=== PATIENT | female | born 1945 | race African-American/Black ===

== ENCOUNTER 2017-10-28 16:20 | Inpatient (IN) | payer MEDICARE, BC ==
[~2017-10-28] VITALS: Ht 170.2 cm; Wt 93.4 kg
[2017-10-28 17:49] LABS: BASOPHILS % 0.8 % (0.0-2.0); EOSINOPHILS % 4.7 % (0.0-5.0); HEMATOCRIT. 35.2 % (36.0-48.0); HEMOGLOBIN. 11.7 g/dL (12.0-16.0); LYMPHOCYTES % 21.3 % (20.0-50.0); MEAN CORPUSCULAR HEMOGLOBIN 27.4 pg (28.0-32.0); MEAN CORPUSCULAR VOLUME 82.2 fL (81.0-99.0); MEAN PLATELET VOLUME 7.9 fl (7.4-10.4); MONOCYTES % 7.8 % (2.0-8.0); NEUTROPHILS % 65.4 % (40.0-76.0); PLATELET 176 x1000/uL (130-400); RED BLOOD CELL COUNT 4.28 mill/uL (4.2-5.4); RED CELL DISTRIBUTION WIDTH 14.7 % (11.6-14.6)
[2017-10-28 17:51] LABS: CHLORIDE 106 mEq/L (98-107)
[2017-10-28 17:52] LABS: INR 1.1
[2017-10-28 18:01] LABS: CREATINE KINASE 757 IU/L (26-192)
[2017-10-28 22:00] VITALS: BP 140/70
[2017-10-28] MEDS ORDERED: DIGO125T82 PO (22:09)
[2017-10-28] MEDS ORDERED: METF-415 PO (22:09)
[2017-10-28] MEDS ORDERED: ASPI-986 PO (22:12)
[2017-10-28] MEDS ORDERED: ATEN-42 PO (22:14)
[2017-10-28] MEDS ORDERED: GUAIFENESIN 200MG/10ML SUGAR FREE UDC PO PRN (23:00)
[2017-10-28] MEDS ORDERED: DOCUSATE SODIUM 100MG CAPSULE PO PRN (23:00)
[2017-10-28] MEDS ORDERED: ACETAMINOPHEN 325MG TABLET PO PRN (23:00)
[2017-10-28] MEDS ORDERED: CLONIDINE 0.1MG TABLET PO PRN (23:00)
[2017-10-28] MEDS ORDERED: ONDANSETRON HCL 4MG/2ML INJ IV PRN (23:00)
[2017-10-29] VITALS: BP 140/70
[2017-10-29] MEDS: SODIUM CHLORIDE 0.9% 1,000 ML IV SCH ×2 (01:27→21:54)
[2017-10-29 04:00] VITALS: BP 124/69
[2017-10-29 06:13] LABS: BASOPHILS % 0.9 % (0.0-2.0); HEMATOCRIT. 32.3 % (36.0-48.0); HEMOGLOBIN. 10.8 g/dL (12.0-16.0); LYMPHOCYTES % 23.7 % (20.0-50.0); MEAN CORPUSCULAR HEMOGLOBIN 27.6 pg (28.0-32.0); MEAN CORPUSCULAR VOLUME 82.5 fL (81.0-99.0); MEAN PLATELET VOLUME 7.9 fl (7.4-10.4); MONOCYTES % 7.3 % (2.0-8.0); NEUTROPHILS % 61.1 % (40.0-76.0); PLATELET 166 x1000/uL (130-400); RED BLOOD CELL COUNT 3.92 mill/uL (4.2-5.4); RED CELL DISTRIBUTION WIDTH 14.7 % (11.6-14.6)
[2017-10-29 06:47] LABS: CHLORIDE 108 mEq/L (98-107); CREATINE KINASE 468 IU/L (26-192)
[2017-10-29 08:00] VITALS: BP 122/74
[2017-10-29] MEDS: MULTIVITAMINS,THER W-MINERALS TABLET PO SCH (08:42)
[2017-10-29] MEDS: ASPIRIN 81MG EC TABLET PO SCH (08:42)
[2017-10-29] MEDS: AMLODIPINE 10MG TABLET PO SCH (08:45)
[2017-10-29 11:55] LABS: CLARITY URINE CLOUDY (CLEAR); COLOR URINE DARK YELLOW (YELLOW); KETONES URINE 1+ (NEGATIVE); LEUKOCYTE ESTERASE URINE 2+ (NEGATIVE); NITRITE URINE POSITIVE (NEGATIVE); OCCULT BLOOD URINE 3+ (NEGATIVE); PH URINE 5.5 (4.5-8.0); PROTEIN URINE 1+ (NEGATIVE); SPECIFIC GRAVITY URINE 1.026 (1.005-1.030)
[2017-10-29 12:00] VITALS: BP 120/80
[2017-10-29] MEDS: INSULIN LISPRO 100 UNITS/ML SUBCUT SCH ×3 (12:54→21:00)
[2017-10-29] MEDS: BLOOD SUGAR DIAGNOSTIC STRIP TEST SCH ×3 (12:54→21:40)
[2017-10-29] MEDS ORDERED: DEXTROSE 50% WATER 50ML SYRINGE IV PRN (13:00)
[2017-10-29 16:00] VITALS: BP 111/56
[2017-10-29 16:17] LABS: CREATINE KINASE 375 IU/L (26-192)
[2017-10-29 20:00] VITALS: BP 111/59
[2017-10-30] VITALS: BP 125/66
[2017-10-30] MEDS: SODIUM CHLORIDE 0.9% 1,000 ML IV SCH ×2 (01:30→12:47)
[2017-10-30 04:00] VITALS: BP 126/70
[2017-10-30] MEDS: BLOOD SUGAR DIAGNOSTIC STRIP TEST SCH ×4 (07:14→21:40)
[2017-10-30] MEDS: INSULIN LISPRO 100 UNITS/ML SUBCUT SCH ×4 (07:14→21:00)
[2017-10-30 08:00] VITALS: BP 166/76
[2017-10-30] MEDS: MULTIVITAMINS,THER W-MINERALS TABLET PO SCH (08:49)
[2017-10-30] MEDS: ASPIRIN 81MG EC TABLET PO SCH (08:49)
[2017-10-30] MEDS: AMLODIPINE 10MG TABLET PO SCH (08:50)
[2017-10-30 12:00] VITALS: BP 112/62
[2017-10-30] MEDS: LEVOFLOXACIN 500MG PREMIX 100 ML IV SCH (15:48)
[2017-10-30 16:00] VITALS: BP 128/69
[2017-10-30 20:00] VITALS: BP 128/69
[2017-10-31] VITALS: BP 122/68
[2017-10-31 04:00] VITALS: BP 140/76
[2017-10-31] MEDS: BLOOD SUGAR DIAGNOSTIC STRIP TEST SCH ×4 (06:49→20:45)
[2017-10-31] MEDS: SODIUM CHLORIDE 0.9% 1,000 ML IV SCH ×2 (06:50→17:30)
[2017-10-31] MEDS: INSULIN LISPRO 100 UNITS/ML SUBCUT SCH ×4 (07:00→20:47)
[2017-10-31 08:00] VITALS: BP 154/82
[2017-10-31] MEDS: AMLODIPINE 10MG TABLET PO SCH (09:21)
[2017-10-31] MEDS: MULTIVITAMINS,THER W-MINERALS TABLET PO SCH (09:21)
[2017-10-31] MEDS: ASPIRIN 81MG EC TABLET PO SCH (09:21)
[2017-10-31] MEDS: LEVOFLOXACIN 500MG PREMIX 100 ML IV SCH (14:19)
[2017-10-31] MEDS ORDERED: NITR-87 PO (15:43)
[2017-10-31 15:44] VITALS: BP 142/82
[2017-10-31 16:00] VITALS: BP_SYST 136; BP_SYST 163; BP_DIAS 84; BP_DIAS 89
[2017-10-31 20:51] VITALS: BP 140/78
[2017-11-01] VITALS: BP 156/78
[2017-11-01 04:00] VITALS: BP 132/67
[2017-11-01] MEDS: BLOOD SUGAR DIAGNOSTIC STRIP TEST SCH ×4 (06:21→21:18)
[2017-11-01] MEDS: SODIUM CHLORIDE 0.9% 1,000 ML IV SCH ×2 (06:50→17:31)
[2017-11-01] MEDS: INSULIN LISPRO 100 UNITS/ML SUBCUT SCH ×4 (07:50→21:00)
[2017-11-01] MEDS: ASPIRIN 81MG EC TABLET PO SCH (08:38)
[2017-11-01] MEDS: MULTIVITAMINS,THER W-MINERALS TABLET PO SCH (08:38)
[2017-11-01] MEDS: AMLODIPINE 10MG TABLET PO SCH (08:39)
[2017-11-01 09:25] VITALS: BP 135/78
[2017-11-01 12:00] VITALS: BP 108/67
[2017-11-01 16:00] VITALS: BP 121/69
[2017-11-01 20:00] VITALS: BP 138/73
[2017-11-02] VITALS: BP 151/83
[2017-11-02 04:00] VITALS: BP 135/75
[2017-11-02] MEDS: BLOOD SUGAR DIAGNOSTIC STRIP TEST SCH ×4 (06:48→21:32)
[2017-11-02] MEDS: INSULIN LISPRO 100 UNITS/ML SUBCUT SCH ×4 (07:50→21:00)
[2017-11-02 08:00] VITALS: BP 142/78
[2017-11-02] MEDS: ASPIRIN 81MG EC TABLET PO SCH (09:28)
[2017-11-02] MEDS: MULTIVITAMINS,THER W-MINERALS TABLET PO SCH (09:28)
[2017-11-02] MEDS: AMLODIPINE 10MG TABLET PO SCH (09:28)
[2017-11-02 12:00] VITALS: BP 127/59
[2017-11-02 16:00] VITALS: BP 131/62
[2017-11-02] MEDS: LEVOFLOXACIN 500MG TABLET PO SCH (16:19)
[2017-11-02 20:00] VITALS: BP 142/70
[2017-11-03] VITALS: BP 148/72
[2017-11-03] MEDS: BLOOD SUGAR DIAGNOSTIC STRIP TEST SCH ×3 (06:42→17:18)
[2017-11-03] MEDS: INSULIN LISPRO 100 UNITS/ML SUBCUT SCH ×3 (06:44→17:18)
[2017-11-03 08:00] VITALS: BP 144/78
[2017-11-03] MEDS: ASPIRIN 81MG EC TABLET PO SCH (08:12)
[2017-11-03] MEDS: AMLODIPINE 10MG TABLET PO SCH (08:12)
[2017-11-03] MEDS: MULTIVITAMINS,THER W-MINERALS TABLET PO SCH (08:20)
[2017-11-03] MEDS: LEVOFLOXACIN 500MG TABLET PO SCH (10:00)
[2017-11-03 12:00] VITALS: BP 151/73
[2017-11-03 16:00] VITALS: BP 144/73
[2017-11-03 16:09] VITALS: BP 144/73
== END 2017-11-03 18:30 | DRG 557 ==
LOC: ER 16:20 → 6EST 20:02 → ENRESERV 20:23
PROVIDERS: ADMIT Hospitalist; ATTEND Hospitalist
DX: M62.82 Rhabdomyolysis (principal); R53.2 Functional quadriplegia; D64.9 Anemia, unspecified; E11.9 Type 2 diabetes mellitus without complications; N39.0 Urinary tract infection, site not specified; I10 Essential (primary) hypertension; B96.89 Other specified bacterial agents as the cause of diseases classified elsewhere; I25.10 Atherosclerotic heart disease of native coronary artery without angina pectoris; W18.39XA Other fall on same level, initial encounter; Y93.89 Activity, other specified; Y92.89 Other specified places as the place of occurrence of the external cause; Y99.8 Other external cause status; Z79.899 Other long term (current) drug therapy; Z79.82 Long term (current) use of aspirin
CPT/HCPCS: 36415; 71045; 72170; 81001; 82550; 82962; 87077; 87186; 93005; 93970; 97116; 97162; 97166; 99285; C1893; J1956; J7030

== ENCOUNTER 2019-10-09 19:12 | Inpatient (IN) | payer BC, MEDICARE ==
[~2019-10-09] VITALS: Ht 167.6 cm; Wt 76.7 kg
[~2019-10-09 19:12] MED LIST: ASPI-986 PO; ATEN-42 PO; DIGO125T PO; METF-415 PO; NITR-87 PO
[2019-10-09] MEDS ORDERED: ONDANSETRON HCL 4MG/2ML INJ IV STA (20:41)
[2019-10-09] MEDS ORDERED: SODIUM CHLORIDE 0.9% 1,000 ML IV ONE (20:41)
[2019-10-09] MEDS ORDERED: MORPHINE SULFATE 4 MG/ML CPJ (NOT FOR IM USE) IV STA (20:41)
[2019-10-09] MEDS ORDERED: PIPERACILLIN/TAZ 3.375G PREMIX 50 ML IV ONE (20:45)
[2019-10-09] MEDS ORDERED: VANCOMYCIN 1 G PREMIX 200 ML IV ONE (20:45)
[2019-10-09 21:47] LABS: BASOPHILS % 0.9 % (0.0-2.0); EOSINOPHILS % 0.9 % (0.0-5.0); HEMATOCRIT. 26.5 % (36.0-48.0); HEMOGLOBIN. 8.2 g/dL (12.0-16.0); MEAN CORPUSCULAR HEMOGLOBIN 20.6 pg (28.0-32.0); MEAN CORPUSCULAR VOLUME 66.8 fL (81.0-99.0); MONOCYTES % 4.7 % (2.0-8.0); NEUTROPHILS % 79.5 % (40.0-76.0); PLATELET 223 x1000/uL (130-400); RED BLOOD CELL COUNT 3.96 mill/uL (4.2-5.4); RED CELL DISTRIBUTION WIDTH 17.3 % (11.6-14.6)
[2019-10-09 21:50] LABS: CHLORIDE 110 mEq/L (98-107)
[2019-10-09 21:52] LABS: INR 1.1; PROTHROMBIN TIME 11.1 sec (9.6-11.0)
[2019-10-09 21:54] LABS: ETHANOL BLOOD < 10 mg/dL
[2019-10-09 22:14] LABS: DIGOXIN < 0.1 ng/mL (0.9-2.0)
[2019-10-09 22:30] LABS: PLATELET ESTIMATE NORMAL
[2019-10-10 04:00] VITALS: BP_SYST 147; BP_SYST 97; BP_DIAS 58; BP_DIAS 86
[2019-10-10] MEDS ORDERED: DEXTROSE 50% WATER 50ML SYRINGE IV PRN (07:00)
[2019-10-10] MEDS ORDERED: CEFTRIAXONE 1 G PREMIX 50 ML IV SCH (07:00)
[2019-10-10] MEDS ORDERED: ACETAMINOPHEN 325MG TABLET PO PRN (07:00)
[2019-10-10] MEDS ORDERED: BLOOD SUGAR DIAGNOSTIC STRIP TEST SCH (07:20)
[2019-10-10] MEDS: INSULIN LISPRO 100 UNITS/ML SUBCUT SCH ×4 (07:50→20:27)
[2019-10-10 08:00] VITALS: BP 118/66
[2019-10-10] MEDS ORDERED: ENOXAPARIN 40MG/0.4ML SYR SUBCUT SCH (09:42)
[2019-10-10] MEDS: CEFTRIAXONE 1 G PREMIX 50 ML IV SCH (10:25)
[2019-10-10] MEDS: BLOOD SUGAR DIAGNOSTIC STRIP TEST SCH ×3 (11:42→20:27)
[2019-10-10 12:00] VITALS: BP 100/52
[2019-10-10 16:00] VITALS: BP 132/61
[2019-10-10 20:00] VITALS: BP 136/60
[2019-10-10 20:17] LABS: BASOPHILS % 1.3 % (0.0-2.0); EOSINOPHILS % 4.5 % (0.0-5.0); HEMATOCRIT. 25.2 % (36.0-48.0); HEMOGLOBIN. 7.7 g/dL (12.0-16.0); LYMPHOCYTES % 27.6 % (20.0-50.0); MEAN CORPUSCULAR HEMOGLOBIN 20.1 pg (28.0-32.0); MEAN CORPUSCULAR VOLUME 65.9 fL (81.0-99.0); MEAN PLATELET VOLUME 7.3 fl (7.4-10.4); MONOCYTES % 5.3 % (2.0-8.0); NEUTROPHILS % 61.3 % (40.0-76.0); PLATELET 224 x1000/uL (130-400); RED BLOOD CELL COUNT 3.83 mill/uL (4.2-5.4); RED CELL DISTRIBUTION WIDTH 17.6 % (11.6-14.6)
[2019-10-10 20:25] LABS: CHLORIDE 109 mEq/L (98-107)
[2019-10-10 20:31] LABS: TOTAL IRON BINDING CAPACITY 361 ug/dL (250-450)
[2019-10-10] MEDS: VANCOMYCIN 1 G PREMIX 200 ML IV SCH (22:49)
[2019-10-11] VITALS: BP 140/52
[2019-10-11 01:43] LABS: CLARITY URINE CLEAR (CLEAR); COLOR URINE ORANGE (YELLOW); KETONES URINE NEGATIVE (NEGATIVE); LEUKOCYTE ESTERASE URINE TRACE (NEGATIVE); NITRITE URINE NEGATIVE (NEGATIVE); OCCULT BLOOD URINE 3+ (NEGATIVE); PH URINE 5.5 (4.5-8.0); PROTEIN URINE NEGATIVE (NEGATIVE); SPECIFIC GRAVITY URINE 1.008 (1.005-1.030); UROBILINOGEN URINE 0.2 E.U./dL (0.2-1.0)
[2019-10-11 04:00] VITALS: BP 138/69
[2019-10-11] MEDS: BLOOD SUGAR DIAGNOSTIC STRIP TEST SCH ×4 (06:25→20:23)
[2019-10-11] MEDS: INSULIN LISPRO 100 UNITS/ML SUBCUT SCH ×4 (07:50→20:23)
[2019-10-11 08:00] VITALS: BP 147/70
[2019-10-11] MEDS: CEFTRIAXONE 1 G PREMIX 50 ML IV SCH (09:00)
[2019-10-11] MEDS: NEOMY SULF/BACITRAC ZN/POLY OINT 28GM TOP SCH (11:12)
[2019-10-11 12:00] VITALS: BP 149/81
[2019-10-11 16:00] VITALS: BP 148/75
[2019-10-11 16:01] LABS: BASOPHILS % 1.3 % (0.0-2.0); EOSINOPHILS % 6.4 % (0.0-5.0); HEMATOCRIT. 24.5 % (36.0-48.0); HEMOGLOBIN. 7.6 g/dL (12.0-16.0); LYMPHOCYTES % 32.6 % (20.0-50.0); MEAN CORPUSCULAR HEMOGLOBIN 20.6 pg (28.0-32.0); MEAN CORPUSCULAR VOLUME 66.7 fL (81.0-99.0); MEAN PLATELET VOLUME 7.5 fl (7.4-10.4); MONOCYTES % 7.8 % (2.0-8.0); NEUTROPHILS % 51.9 % (40.0-76.0); PLATELET 207 x1000/uL (130-400); RED BLOOD CELL COUNT 3.67 mill/uL (4.2-5.4); RED CELL DISTRIBUTION WIDTH 17.8 % (11.6-14.6)
[2019-10-11 16:03] LABS: INR 1.1; PROTHROMBIN TIME 11.1 sec (9.6-11.0)
[2019-10-11 16:21] LABS: CHLORIDE 111 mEq/L (98-107)
[2019-10-11] MEDS: VANCOMYCIN 1 G PREMIX 200 ML IV SCH (16:25)
[2019-10-11] MEDS ORDERED: CEPH-569 MT (17:51)
[2019-10-11 20:00] VITALS: BP 143/59
[2019-10-12] VITALS: BP 156/76
[2019-10-12 04:00] VITALS: BP_SYST 138; BP_SYST 154; BP_DIAS 64; BP_DIAS 72
[2019-10-12 05:43] LABS: CHLORIDE 111 mEq/L (98-107)
[2019-10-12] MEDS: BLOOD SUGAR DIAGNOSTIC STRIP TEST SCH ×4 (06:30→20:43)
[2019-10-12] MEDS: INSULIN LISPRO 100 UNITS/ML SUBCUT SCH ×4 (07:12→20:43)
[2019-10-12 08:00] VITALS: BP 138/65
[2019-10-12] MEDS: NEOMY SULF/BACITRAC ZN/POLY OINT 28GM TOP SCH (09:32)
[2019-10-12] MEDS: CEFTRIAXONE 1 G PREMIX 50 ML IV SCH (09:32)
[2019-10-12] MEDS: VANCOMYCIN 1 G PREMIX 200 ML IV SCH (10:46)
[2019-10-12 12:00] VITALS: BP 129/58
[2019-10-12 16:00] VITALS: BP 137/68
[2019-10-12 20:00] VITALS: BP 154/72
[2019-10-12] MEDS: VANCOMYCIN 750 MG PREMIX 150 ML IV SCH (20:37)
[2019-10-13] VITALS: BP 154/54
[2019-10-13 04:00] VITALS: BP 152/74
[2019-10-13] MEDS: BLOOD SUGAR DIAGNOSTIC STRIP TEST SCH ×4 (06:30→21:31)
[2019-10-13] MEDS: INSULIN LISPRO 100 UNITS/ML SUBCUT SCH ×4 (07:50→21:47)
[2019-10-13 08:00] VITALS: BP 125/65
[2019-10-13] MEDS: VANCOMYCIN 750 MG PREMIX 150 ML IV SCH ×2 (08:51→21:31)
[2019-10-13] MEDS: NEOMY SULF/BACITRAC ZN/POLY OINT 28GM TOP SCH (08:57)
[2019-10-13] MEDS: CEFTRIAXONE 1 G PREMIX 50 ML IV SCH (10:35)
[2019-10-13 12:00] VITALS: BP 120/46
[2019-10-13 16:00] VITALS: BP 126/55
[2019-10-13 20:00] VITALS: BP 140/55
[2019-10-14] VITALS (7 sets, daily range): BP systolic 124–167; BP diastolic 56–92
[2019-10-14] MEDS: BLOOD SUGAR DIAGNOSTIC STRIP TEST SCH ×3 (05:25→21:00)
[2019-10-14] MEDS: INSULIN LISPRO 100 UNITS/ML SUBCUT SCH ×3 (05:31→21:00)
[2019-10-14 07:33] LABS: CHLORIDE 110 mEq/L (98-107)
[2019-10-14] MEDS: VANCOMYCIN 750 MG PREMIX 150 ML IV SCH (09:49)
[2019-10-14] MEDS: NEOMY SULF/BACITRAC ZN/POLY OINT 28GM TOP SCH (09:50)
[2019-10-14] MEDS: CEFTRIAXONE 1 G PREMIX 50 ML IV SCH (10:00)
[2019-10-14] MEDS: VANCOMYCIN 1 G PREMIX 200 ML IV SCH (21:45)
[2019-10-15] VITALS (7 sets, daily range): BP systolic 120–156; BP diastolic 56–76
[2019-10-15] MEDS: VANCOMYCIN 1 G PREMIX 200 ML IV SCH ×2 (05:30→17:02)
[2019-10-15] MEDS: BLOOD SUGAR DIAGNOSTIC STRIP TEST SCH ×4 (07:44→21:00)
[2019-10-15] MEDS: INSULIN LISPRO 100 UNITS/ML SUBCUT SCH ×4 (07:46→21:00)
[2019-10-15] MEDS: CEFTRIAXONE 1 G PREMIX 50 ML IV SCH (09:30)
[2019-10-15] MEDS: NEOMY SULF/BACITRAC ZN/POLY OINT 28GM TOP SCH (09:31)
[2019-10-15 11:59] LABS: BASOPHILS % 1.6 % (0.0-2.0); EOSINOPHILS % 5.4 % (0.0-5.0); HEMATOCRIT. 24.9 % (36.0-48.0); HEMOGLOBIN. 7.6 g/dL (12.0-16.0); LYMPHOCYTES % 25.7 % (20.0-50.0); MEAN CORPUSCULAR VOLUME 65.8 fL (81.0-99.0); MONOCYTES % 7.4 % (2.0-8.0); NEUTROPHILS % 59.9 % (40.0-76.0); PLATELET 233 x1000/uL (130-400); RED BLOOD CELL COUNT 3.78 mill/uL (4.2-5.4); RED CELL DISTRIBUTION WIDTH 17.7 % (11.6-14.6)
[2019-10-15 12:17] LABS: CHLORIDE 108 mEq/L (98-107)
[2019-10-16] VITALS: BP 134/69
[2019-10-16 04:00] VITALS: BP 112/58
[2019-10-16] MEDS: INSULIN LISPRO 100 UNITS/ML SUBCUT SCH ×4 (06:34→21:00)
[2019-10-16] MEDS: BLOOD SUGAR DIAGNOSTIC STRIP TEST SCH ×4 (06:34→21:00)
[2019-10-16] MEDS: VANCOMYCIN 1 G PREMIX 200 ML IV SCH ×2 (06:34→17:09)
[2019-10-16 08:00] VITALS: BP 150/73
[2019-10-16] MEDS: CEFTRIAXONE 1 G PREMIX 50 ML IV SCH (09:02)
[2019-10-16] MEDS: NEOMY SULF/BACITRAC ZN/POLY OINT 28GM TOP SCH (09:02)
[2019-10-16 12:00] VITALS: BP 134/71
[2019-10-16 16:00] VITALS: BP 141/71
[2019-10-16 20:00] VITALS: BP 158/76
[2019-10-17] VITALS: BP 147/67
[2019-10-17 04:00] VITALS: BP 120/55
[2019-10-17] MEDS: VANCOMYCIN 1 G PREMIX 200 ML IV SCH ×2 (05:09→17:03)
[2019-10-17] MEDS: BLOOD SUGAR DIAGNOSTIC STRIP TEST SCH ×4 (06:32→20:09)
[2019-10-17] MEDS: INSULIN LISPRO 100 UNITS/ML SUBCUT SCH ×4 (06:32→20:10)
[2019-10-17 08:00] VITALS: BP 118/55
[2019-10-17] MEDS: NEOMY SULF/BACITRAC ZN/POLY OINT 28GM TOP SCH (09:00)
[2019-10-17] MEDS: CEFTRIAXONE 1 G PREMIX 50 ML IV SCH ×2 (10:27→10:29)
[2019-10-17 12:00] VITALS: BP 140/60
[2019-10-17 16:00] VITALS: BP 149/64
[2019-10-17 20:00] VITALS: BP 141/66
[2019-10-18] VITALS: BP 119/62
[2019-10-18 04:00] VITALS: BP 129/60
[2019-10-18] MEDS: BLOOD SUGAR DIAGNOSTIC STRIP TEST SCH ×4 (06:49→20:09)
[2019-10-18] MEDS: INSULIN LISPRO 100 UNITS/ML SUBCUT SCH ×4 (06:50→20:09)
[2019-10-18] MEDS: NEOMY SULF/BACITRAC ZN/POLY OINT 28GM TOP SCH (08:32)
[2019-10-18 12:00] VITALS: BP_SYST 130; BP_SYST 134; BP_DIAS 64; BP_DIAS 65
[2019-10-18 16:00] VITALS: BP 136/71
[2019-10-18 20:31] VITALS: BP 129/64
[2019-10-19] VITALS: BP 154/71
[2019-10-19 04:00] VITALS: BP 150/77
[2019-10-19] MEDS: BLOOD SUGAR DIAGNOSTIC STRIP TEST SCH ×4 (06:33→20:43)
[2019-10-19] MEDS: INSULIN LISPRO 100 UNITS/ML SUBCUT SCH ×4 (07:34→20:43)
[2019-10-19 08:00] VITALS: BP 135/67
[2019-10-19] MEDS: NEOMY SULF/BACITRAC ZN/POLY OINT 28GM TOP SCH (08:38)
[2019-10-19 12:00] VITALS: BP 130/51
[2019-10-19 16:00] VITALS: BP 127/60
[2019-10-19 20:00] VITALS: BP 148/78
[2019-10-20] VITALS: BP 116/59
[2019-10-20 04:00] VITALS: BP 136/70
[2019-10-20] MEDS: INSULIN LISPRO 100 UNITS/ML SUBCUT SCH ×3 (07:50→17:16)
[2019-10-20] MEDS: BLOOD SUGAR DIAGNOSTIC STRIP TEST SCH ×3 (07:56→17:16)
[2019-10-20 08:00] VITALS: BP 159/72
[2019-10-20] MEDS: NEOMY SULF/BACITRAC ZN/POLY OINT 28GM TOP SCH (08:02)
[2019-10-20 12:00] VITALS: BP 146/82
[2019-10-20 16:00] VITALS: BP 153/73
== END 2019-10-20 20:30 | disposition home or self-care (01) | DRG 603 ==
LOC: ER 19:12 → 6EST 10-10 01:15 → EDBEDREQ 10-10 01:29 → ENRESERV 10-10 02:22 → 6EST 10-10 03:50
PROVIDERS: ADMIT Family Medicine; ATTEND Family Medicine
DX: L03.115 Cellulitis of right lower limb (principal); E44.1 Mild protein-calorie malnutrition; D64.9 Anemia, unspecified; E11.42 Type 2 diabetes mellitus with diabetic polyneuropathy; E66.01 Morbid (severe) obesity due to excess calories; D25.9 Leiomyoma of uterus, unspecified; R26.89 Other abnormalities of gait and mobility; H91.93 Unspecified hearing loss, bilateral; S90.821A Blister (nonthermal), right foot, initial encounter; I11.9 Hypertensive heart disease without heart failure; X58.XXXA Exposure to other specified factors, initial encounter; Y93.89 Activity, other specified; Y92.89 Other specified places as the place of occurrence of the external cause; Y99.8 Other external cause status; Z86.73 Personal history of transient ischemic attack (TIA), and cerebral infarction without residual deficits; Z79.899 Other long term (current) drug therapy; Z79.82 Long term (current) use of aspirin; Z68.27 Body mass index [BMI] 27.0-27.9, adult
CPT/HCPCS: 36415; 71045; 76856; 80048; 80053; 80162; 80202; 80320; 81003; 82962; 83540; 83550; 83605; 83880; 84145; 84484; 85025; 93005; 93970; 96365; 97112; 97116; 97162; 99285; C1893; J0696; J1650; J1815; J2270; J2405; J2543; J3370; J7030; J7040; G0480